=== PATIENT | male | born 1940 | race Caucasian/White ===

== ENCOUNTER 2021-06-16 14:48 | Inpatient (IN) | payer MEDICARE ==
[~2021-06-16] VITALS: Ht 180.3 cm; Wt 68.2 kg
[2021-06-16 15:17] LABS: BASO # 0.1 (0.0-0.2); BASO % 0.4 % (0.0-2.0); EOS % 0.3 % (0-4.0); GRAN # 9.7 (1.4-6.5); GRAN % 82.5 % (42.2-75.2); HEMATOCRIT 44.2 % (42.0-52.0); HEMOGLOBIN 15.2 g/dl (13.5-18.0); LYMPH # 1.3 (1.2-3.4); LYMPH % 10.8 % (20.0-51.0); MEAN CELL VOLUME 91 fl (80.0-100.0); MEAN CORPUSCULAR HEMOGLOBIN 31 pg (27.0-31.0); MEAN CORPUSCULAR HGB CONC 34 g/dl (33.0-37.0); MEAN PLATELET VOLUME 9.6 fl (7.4-10.4); MONO # 0.7 (0.1-0.6); MONO % 5.7 % (1.7-9.3); PLATELET COUNT 289 K/mm3 (130-400); RED BLOOD COUNT 4.84 M/mm3 (4.20-5.60); REDCELL DISTRIBUTION WIDTH-CV 12.3 % (11.5-14.5)
[2021-06-16 15:31] LABS: ALBUMIN 4.4 gm/dL (3.5-5.0); BILIRUBIN,TOTAL 0.4 mg/dL (0.0-1.0); CALCIUM 9.9 mg/dL (8.4-10.2); CREATININE, serum 1.34 (0.66-1.25); POTASSIUM 5.3 mmol/L (3.4-5.0); TOTAL PROTEIN 8.2 gm/dL (6.4-8.2)
[2021-06-16 15:49] LABS: TROPONIN-I 0.052 ng/mL (0.000-0.035)
[2021-06-16 16:27] LABS: COLLECTION METHOD CLEAN CATCH
[2021-06-16 16:34] LABS: PH 7 (5-8); SQUAMOUS EPITHELIAL 0-2 /hpf; URINE APPEARANCE Clear; URINE BACTERIA None Seen /hpf; URINE BILIRUBIN Negative (NEGATIVE); URINE BLOOD Negative (NEGATIVE); URINE COLOR Yellow; URINE GLUCOSE Negative (NEGATIVE); URINE KETONE Negative (NEGATIVE); URINE LEUKOCYTE ESTERASE Negative (NEGATIVE); URINE NITRATE Negative (NEGATIVE); URINE PROTEIN(semi-quant) 1+ (NEGATIVE); URINE RBC None Seen /hpf; URINE UROBILINOGEN Negative (NEGATIVE)
[2021-06-16 17:11] LABS: TRICYCLIC ANTIDEPRESS URINE NEGATIVE
[2021-06-16 18:21] VITALS: BP 157/74; PULSE 62; TEMP 98.2
--- NOTE | 2021-06-16 19:16 | NUR ---
Pt arrived to floor at 1830 via wc with ER staff, able to get to bed but cannot hear anything I am saying. Lesly to see pt at this time, will continue to monitor and give nightshift report.
--- NOTE | 2021-06-16 20:30 | NUR ---
Admitted to surgical floor from ER-- DX, weakness, altered mental status,,, Pt alert/very, very [place]-have to communicate with white board- VSS, is oriented to month/year and place-- states does not know how he ended up on the ground where he was found earlier today and brought to ER--- no neuro deficits noted- up to bathroom with assist- weak gait. Denies any pain. Tele put on patient per orders, Lesly MARADIAGA aware of troponins, IV of NS at 100cc/hr
[2021-06-16 21:40] VITALS: BP 152/59; PULSE 54; TEMP 97.3
[2021-06-16 23:21] VITALS: BP 147/52; PULSE 44
[2021-06-16 23:23] VITALS: BP 147/52; PULSE 44; TEMP 98.3
[2021-06-17 00:12] LABS: PROCALCITONIN <0.05 ng/mL (0.00-0.09)
[2021-06-17 03:23] VITALS: BP 137/71; PULSE 50; TEMP 97.9
--- NOTE | 2021-06-17 04:55 | NUR ---
Quiet night- VSS, denies any chest pain-- states his right arm/shoulder is sore from a previous fall-- Up to bathroom with assist, voiding good amounts of urine, continues with IV fluids of NS at 100cc/hr. Bed alarm on- forgets to call for nurse for assistance- reminded again. States he wants to go home.
[2021-06-17 07:27] LABS: BASO % 0.3 % (0.0-2.0); EOS # 0.1 (0.0-0.7); EOS % 1.4 % (0-4.0); GRAN # 7.3 (1.4-6.5); GRAN % 79.4 % (42.2-75.2); HEMATOCRIT 41.6 % (42.0-52.0); HEMOGLOBIN 13.8 g/dl (13.5-18.0); LYMPH # 1.2 (1.2-3.4); MEAN CELL VOLUME 95 fl (80.0-100.0); MEAN CORPUSCULAR HEMOGLOBIN 32 pg (27.0-31.0); MEAN CORPUSCULAR HGB CONC 33 g/dl (33.0-37.0); MONO # 0.5 (0.1-0.6); MONO % 5.7 % (1.7-9.3); PLATELET COUNT 251 K/mm3 (130-400); RED BLOOD COUNT 4.37 M/mm3 (4.20-5.60); REDCELL DISTRIBUTION WIDTH-CV 12.5 % (11.5-14.5)
[2021-06-17 07:33] LABS: CALCIUM 8.9 mg/dL (8.4-10.2); CREATININE, serum 1.2 (0.66-1.25); POTASSIUM 4.2 mmol/L (3.4-5.0)
[2021-06-17 07:50] LABS: TROPONIN-I 0.073 ng/mL (0.000-0.035)
--- NOTE | 2021-06-17 08:00 | NUR ---
PATIENT IS ALERT AND ORIENTED X2 TO TIME AND PERSON. PATIENT IS UNSURE OF WHERE WE ARE OR WHO PRESIDENT IS. PATIENT IS VERY HARD OF HEARING. WHITE BOARD HAS BEEN UTILIZED FOR COMMUNICATION. NEURO CONSULT TODAY. IV INFUSING INTO RIGHT AC. VITAL SIGNS STABLE. PATIENT STATES HE HAS RIGHT SHOULDER PAIN. NO OTHER NEEDS AT THIS TIME. HEAD TO TOE ASSESSMENT COMPLETE. CALL LIGHT WITHIN REACH.
[2021-06-17 08:03] LABS: TSH w REFLEX 1.75 uIU/mL (0.465-4.680)
[2021-06-17 08:14] VITALS: BP 159/56; PULSE 51; TEMP 98.5
--- NOTE | 2021-06-17 10:25 | NUR ---
The pt cannot hear very well and the pt seems private Sw met with the pt who stated his preference to return home once medically stable. The pt did not responde to me at first then he put his hands to his ears because he couldn't hear well. The Sw noticed that the pt did not have any data his home demographics. The sw asked the pt if he had a next of kin and he said he has no or kids but does have silblings. He has one sister and two brothers, Jose lucas and Brendon Lucas. The pt does not have a PCP and does not want one or a pharmacy. He stated he does not take medications. The pt did not answer me about DPOA-HC. The pt is independent on all ADLs and uses no DME he nodds. The sw left with the pt a assistance application. No other needs stated at this time. Sw to await further recommendations and follow up as needed. D/c: HOME
[2021-06-17 11:26] VITALS: BP 148/56; PULSE 52; TEMP 97.9
--- NOTE | 2021-06-17 13:44 | NUR ---
Initial visit attempt; Patient unable to hear Design Sales Consultant but let her know he thanked her for giving him a sign of the cross and letting him know she will pray for him.
[2021-06-17 16:16] VITALS: BP 173/75; PULSE 49; TEMP 98.4
[2021-06-17 17:48] LABS: FOLATE (FOLIC ACID) 6.8 ng/mL (2.0-20.0)
--- NOTE | 2021-06-17 18:37 | NUR ---
PATIENT CONFUSED THROUGHOUT DAY. REFUSED MRI. NOTIFIED DUDLEY ZUNIGA OF HYPERTENSION AND LOW HEART RATE AT 37 AND ENLARGED SCROTUM. PATIENT DENIES PAIN. NO FURTHER NEEDS AT THIS TIME. WILL REPORT TO DRAFTER PATENT
[2021-06-17 20:18] VITALS: BP 171/68; PULSE 48; TEMP 98.3
--- NOTE | 2021-06-17 20:30 | NUR ---
Initial shift assessment done- very [place] , using the white board to communicate if possible-- confused as to year, knows he is in the hospital-- states he just wants to go home, Tele on- SB 40,s-50,s ,, has dipped to 37-38/min but not sustained - Lesly ZUNIGA aware. Patient denies pain
[2021-06-18 00:12] VITALS: BP 189/84; PULSE 59; TEMP 97.7
[2021-06-18 04:47] VITALS: BP 186/74; PULSE 54; TEMP 98.2
--- NOTE | 2021-06-18 05:36 | NUR ---
Was up to bathroom numerous times during the shift, had some loose/flecks of stool. Remains oriented except for year and ?situation, wants to go home--will not use call light-impulsive and just gets up to bathroom-bed alarm on. Denies any pain. Did get apresoline prn x1 for increased B/P-
[2021-06-18 06:56] LABS: BASO % 0.5 % (0.0-2.0); EOS # 0.2 (0.0-0.7); EOS % 2.2 % (0-4.0); GRAN # 6.7 (1.4-6.5); GRAN % 75.4 % (42.2-75.2); HEMATOCRIT 44.2 % (42.0-52.0); HEMOGLOBIN 14.9 g/dl (13.5-18.0); LYMPH # 1.4 (1.2-3.4); LYMPH % 16.2 % (20.0-51.0); MEAN CELL VOLUME 93 fl (80.0-100.0); MEAN CORPUSCULAR HEMOGLOBIN 31 pg (27.0-31.0); MEAN CORPUSCULAR HGB CONC 34 g/dl (33.0-37.0); MEAN PLATELET VOLUME 10.6 fl (7.4-10.4); MONO # 0.5 (0.1-0.6); MONO % 5.2 % (1.7-9.3); PLATELET COUNT 256 K/mm3 (130-400); RED BLOOD COUNT 4.76 M/mm3 (4.20-5.60); REDCELL DISTRIBUTION WIDTH-CV 12.5 % (11.5-14.5)
[2021-06-18 07:13] VITALS: BP 187/77; PULSE 54; TEMP 98.2
[2021-06-18 07:21] LABS: CALCIUM 9.4 mg/dL (8.4-10.2); CREATININE, serum 0.95 (0.66-1.25)
--- NOTE | 2021-06-18 08:00 | NUR ---
PATIENT IS ALEART AND ORIENTED X2. PATIENT IS CONFUSED OF YEAR. PATIENT READS OFF OF WHITE BOARD FOR ANSWERS TO DAY AND PLACE. PATIENT IS VERY HARD OF HEARING. PATIENT HAS IV TO RIGHT FOREARM INT. PATIENT SET TO RECIEVE MRI, EEG, CARDIO, AND NEURO CONSULT TODAY. STAFFING ADMINISTRATOR ALSO CONSULTED. PATIENT LIVES ALONE AND HAS NO FAMILY TO CONTACT. PATIENT HAS BEEN HAVING HR IN THE 40S-70S. PATIENT TOLERATING GENERAL DIET. NO FURTHER NEEDS AT THIS TIME. HEAD TO TOE ASSESSMENT COMPLETE. CALL LIGHT WITHIN REACH.
[2021-06-18 11:38] VITALS: BP 159/79; PULSE 85; TEMP 98.3
--- NOTE | 2021-06-18 13:34 | NUR ---
Kobi faxed over referral for placement to [facility] on 06/18 @ 7130.
--- NOTE | 2021-06-18 15:00 | NUR ---
Patient aggitated & irritated. He is wanting to go home. Tried multiple time to reoriented & discussed with patient safety. He is not understanding. in to see patient and also discussed safety with patient. Patient up and ambulated entire third floor 5 times. He did started to get tired & was wheeled back to his room. He was searching for an exit out. Patient not able to be covinced to stay for safety reasons. A dose of hadol of given per orders.
[2021-06-18 15:04] VITALS: BP 108/41; PULSE 95; TEMP 98.1
--- NOTE | 2021-06-18 16:46 | NUR ---
recreation worker contacted [facility] police to help with finding next of kin. Police state there is no residence at [address] [place] [address] and that patient does not own any vehicles and that patient does not have any credit cards. Police could not locate any next of kin for patient when running in their databases. Worker met with Dr Dahl and began work on guardianship.
--- NOTE | 2021-06-18 18:06 | NUR ---
PATIENT CONFUSED THROUGHOUT DAY. STATES HE COULW LIKE TO GO HOME. GOT COMPLETELY DRESSED AND WALKED THE HALLS WITH NURSE. ABLE TO GET HIM TO STAY WITH DISTRACTION TECHNIQUES AND HALPERIDOL PER ORDERS. PATIENT IS NOW LYING DOWN. PATIENT TOLERATING DIET WELL THROUGHOUT THE DAY.
--- NOTE | 2021-06-18 19:14 | NUR ---
Patient resting soundly. High fall risk protocol followed. rounded and reports eeg normal. Bedside report to Ava MORALES
--- NOTE | 2021-06-18 19:30 | NUR ---
Report received, assumed care for security shift manager. Assessment complete. Alert but only oriented to self. States he wants to get out of here and go home. Easily calmed down at this time but seems very drowsy. INT to right forearm flushes without difficulty. Denies pain/nausea/shortness of breath. VS stable. Will not leave tele on-removes as soon as you try to place it and gets very agitated. Plan of care discussed but not interested. Call light in reach with bed alarm on. Will monitor.
[2021-06-18 20:01] VITALS: BP 143/78; PULSE 77; TEMP 98.4
--- NOTE | 2021-06-18 21:00 | NUR ---
Tele reapplied at this time. Was on for approx three minutes when patient removed it stating "I dont want this on me." Unable to redirect.
[2021-06-19] VITALS (7 sets, daily range): BP systolic 134–179; BP diastolic 61–86; PULSE 57–68; TEMP 98–98.8
--- NOTE | 2021-06-19 05:00 | NUR ---
Rested well this shift. Still alert and oriented to self only. Attempts made to reapply tele throughout night but would take it off immediately and toss it on the couch. Denied pain/nausea/shortness of breath. VS remained stable. Denies current needs. Call light in reach/bed alarm on. WIll monitor.
--- NOTE | 2021-06-19 08:30 | NUR ---
Patient sitting up in chair. Tolerated breakfast. enterprise services manager & [employer]. police dept. in to see patient attempting to locate next of kin & find his home. Patient has been very plesant. Seems to be hearing a little better today. Tele placed aure on paitent & he is agreeable to keep on. High fall risk protocol followed.
--- NOTE | 2021-06-19 09:45 | NUR ---
speech in to see patient. She agrees patient mentation is better today.
--- NOTE | 2021-06-19 11:36 | NUR ---
Patient continues to sit up to chair. Using the bathroom as needed. high fall risk followed.
--- NOTE | 2021-06-19 13:29 | NUR ---
Patient ambulting halls with therapy. steady gait. He remains plesant.
--- NOTE | 2021-06-19 18:30 | NUR ---
Patient appeared to have a short seizure maybe 30 seconds after being up to the bathroom. Allsion with hospitalist made aware. Called per her request. Orders obtained. Vitals stable after seizure & patient not aware it happened. Keppa given per orders. Patient remains on tele. He has been very plesant today. Done well with meals. player services representative assisting with plan of care. He had MRI today & was cooperate. [facility]
--- NOTE | 2021-06-19 19:22 | NUR ---
Awake, alert, confusion noted, oriented to self, [place] bilateral ears, tolerating general diet, telemetry in use, seizure precautions in use, denies pain at this time. Will continue to monitor.
--- NOTE | 2021-06-19 19:49 | NUR ---
Patient sleeping soundly now. Report to night nurse
[2021-06-20 00:08] VITALS: BP 133/78; PULSE 65; TEMP 98.3
[2021-06-20 02:54] VITALS: BP 130/70; PULSE 58; TEMP 98.5
--- NOTE | 2021-06-20 06:45 | NUR ---
awake resting in bed, bedside shift report recieved from CARMEN Larios
[2021-06-20 07:30] VITALS: BP 142/71; PULSE 60; TEMP 98.6
--- NOTE | 2021-06-20 07:30 | NUR ---
awake resting in bed, full assessment completed, see interventions for further info, is very hard of hearing and using the white board to communicate, will order his breakfast now
--- NOTE | 2021-06-20 07:51 | NUR ---
plant maintenance worker is actively working with [place] attorneys to secure guardianship/conservatorship for patient. Adult protective services report was filed on 06/19/2021 #[id number]. Worker, on that date, contacted Antwon with Adult protective services and discussed this case. Will await her contact and pursue help with locating property management that owns patient's room that he rents. Will plan for APS to enter patient's room, with landlord to help locate support systems.
--- NOTE | 2021-06-20 10:15 | NUR ---
assisted him up and into shower, he waited for this nurse to explain to him what to do and wash himself, then out of shower and into chair with chair alarm is on
[2021-06-20 11:05] VITALS: BP 122/51; PULSE 63; TEMP 98.5
--- NOTE | 2021-06-20 13:05 | NUR ---
sitting up in chair eating lunch, bedside shift report given to CARMEN Frances
--- NOTE | 2021-06-20 13:05 | NUR ---
Bedside shift report complete, RN Precious introduced this RN to the patient. Pt. is sitting up in chair eating lunch. Precious reported pt. is impulsive, this RN has the patient in line of sight. Safety maintained.
--- NOTE | 2021-06-20 13:33 | NUR ---
Chanel with APS called social media assistant and is working the case. Chanel will attempt to locate landlord and get into apartment with landlord and law enforcement to explore if there are family contacts. Chanel will come to the hospital on Wednesday morning to meet with patient.
[2021-06-20 17:09] VITALS: BP 142/60; PULSE 56; TEMP 98.1
[2021-06-20 19:57] VITALS: BP 115/62; PULSE 61; TEMP 97.6
--- NOTE | 2021-06-20 23:32 | NUR ---
PATIENT RECEIVED IN CHAIR, ALERT AND ORIENTED TO SELF, PLACE AND SURROUNDING. AMBULATED IN ROOM WITH SBA, CHAIR ALARM ON, PATIENT IS IMPULSIVE. GAIT IS STEADY. SEIZURE PRECAUTION PAD IN BED. PATIENT TOOK MED WHOLE WITH WATER. DENIES PAIN OR ANY DISCOMFORT. PATIENT NENANA. WILL CONTINUE TO MONITOR.
[2021-06-21 00:32] VITALS: BP 157/66; PULSE 67; TEMP 98.2
[2021-06-21 04:19] VITALS: BP 156/63; PULSE 54; TEMP 98.1
[2021-06-21 07:11] LABS: BASO % 0.6 % (0.0-2.0); EOS # 0.3 (0.0-0.7); EOS % 4.1 % (0-4.0); GRAN # 4.8 (1.4-6.5); HEMOGLOBIN 14.2 g/dl (13.5-18.0); LYMPH # 1.6 (1.2-3.4); LYMPH % 21.6 % (20.0-51.0); MEAN CELL VOLUME 96 fl (80.0-100.0); MEAN CORPUSCULAR HEMOGLOBIN 32 pg (27.0-31.0); MEAN CORPUSCULAR HGB CONC 33 g/dl (33.0-37.0); MEAN PLATELET VOLUME 9.9 fl (7.4-10.4); MONO # 0.5 (0.1-0.6); MONO % 7.3 % (1.7-9.3); PLATELET COUNT 288 K/mm3 (130-400); RED BLOOD COUNT 4.47 M/mm3 (4.20-5.60); REDCELL DISTRIBUTION WIDTH-CV 12.9 % (11.5-14.5)
[2021-06-21 07:26] LABS: CREATININE, serum 0.98 (0.66-1.25); POTASSIUM 4.3 mmol/L (3.4-5.0)
[2021-06-21 08:00] VITALS: BP 132/67; PULSE 57; TEMP 99.1
--- NOTE | 2021-06-21 08:45 | NUR ---
Patient sitting up in chair for breakfast. hospitalist rounded. minimal needs. high fall risk protocol followed as well as seizure precautions. Patient dean of hearing at times. white board used as needed for communication.
[2021-06-21 13:30] VITALS: BP 133/60; PULSE 60; TEMP 97.6
--- NOTE | 2021-06-21 16:15 | NUR ---
Patient resting in bed. up to the bathroom stand by assist. continue to follow high fall risk protocol.
[2021-06-21 16:39] VITALS: BP 149/59; PULSE 58; TEMP 97.9
--- NOTE | 2021-06-21 17:46 | NUR ---
dinner ordered. patient continues to deny pain. voiding adequately. stand by assist. high fall risk followed.
--- NOTE | 2021-06-21 18:59 | NUR ---
Patient up to the bathroom, voided. tolerated dinner. up to sink and brushed his teeth. no resting in bed. report to inez pham
[2021-06-21 20:09] VITALS: BP 133/52; PULSE 62; TEMP 98.1
[2021-06-22] VITALS (7 sets, daily range): BP systolic 129–182; BP diastolic 56–77; PULSE 51–63; TEMP 97.5–98.2
--- NOTE | 2021-06-22 07:00 | NUR ---
Report received form CARMEN Perez. Pt in be resting, sitting up on bench at side of bed, wearing own clothes, very pleasant. Will continue to monitor.
--- NOTE | 2021-06-22 07:19 | NUR ---
PT VERY CONFUSED BUT COOPERATIVE. NO c/o PAIN. FREQUENTLY GETTING UP TO LEAVE FACILITY. PULLED TELEMETRY OFF SEVERAL TIMES. HE WAS EASILY RE-DIRECTED BUT HAS TO BE WATCHED.
--- NOTE | 2021-06-22 09:00 | NUR ---
Assessment charted. Pt in recliner at side of bed, extremely [place], utilizing white board for communication. PT completely oriented, answers all questions easily, denies any pain, states he did hurt his R shoulder prior to hospitalization but denies pain at site. INT to RFA. Wearing Telemetry, eating very well, denies needs, pleasant in room. Will continue to monitor.
--- NOTE | 2021-06-22 12:05 | NUR ---
Pt states prior address was [address] [place] [address]
--- NOTE | 2021-06-22 19:14 | NUR ---
Pt has done well over shift, resting in bed, laundered clothes for him. Pt sets off alarms but does not attempt to leave room or come out into hallway, very pleasant and able to remain oriented for entire shift. REport given to nightshift nurse hwo will resume care.
[2021-06-23 04:13] VITALS: BP 137/83; PULSE 53; TEMP 98
--- NOTE | 2021-06-23 06:17 | NUR ---
PT WAS COOPERATIVE/COMPLIANT WITH CARE. VERY [place]. PT SLEPT IN CLOTHES THIS SEEMS TO MAKE HIM A LITTLE LESS ANXIOUS. NO SEIZURES OR SEIZURE LIKE ACTIVITY NOTED.
--- NOTE | 2021-06-23 07:00 | NUR ---
Report received from CARMEN Perez. PT in room, up walking around well independently, will conitnue to monitor.
[2021-06-23 08:01] VITALS: BP 127/65; PULSE 68; TEMP 98.8
--- NOTE | 2021-06-23 08:58 | NUR ---
Assessmetn charted. PT doing well, eating breakfast, denies pain, able to answer all orientation questions appropriately. Will continue to monitor.
[2021-06-23 11:50] VITALS: BP 127/73; PULSE 51; TEMP 97.9
--- NOTE | 2021-06-23 15:33 | NUR ---
[place] [employer] attorneys continue to work on securing guardianship for patient. tobacco farmworker will secure shelter care for patient, once guardianship/conservatorship.
--- NOTE | 2021-06-23 19:16 | NUR ---
Pt has done well over shift, resting in bed or recliner, up ad abe. Denies needs, bedside shift report given to nightshift nurse who will resume care.
[2021-06-23 19:52] VITALS: BP 153/73; PULSE 64; TEMP 98.2
--- NOTE | 2021-06-23 22:45 | NUR ---
Pt. sitting up in bed. Pt. is A&OX3, assessment complete. INT to rt. forearm patent. Pt. denies pain or other needs, call light within reach.
[2021-06-24 00:17] VITALS: BP 137/57; PULSE 53; TEMP 97.8
[2021-06-24 04:22] VITALS: BP 144/57; PULSE 52; TEMP 98
--- NOTE | 2021-06-24 05:27 | NUR ---
Pt. more confused this morning. Getting up and trying to go to the grocery store. Pt. reoriented but still seems confused.
--- NOTE | 2021-06-24 07:14 | NUR ---
Report received from Robb. Pt. resting in bed comfortably. White board used for communication because pt. is hard of hearing. Pt. is only oriented to himself. Pt. reports he thought he was in a mental institution, this RN reoriented pt. to let him know he is in the hospital in [facility], not a mental institution. Pt. reported it was 2011, pt. reoriented to let him know the date. This RN encouraged pt. to sit in the chair to wait for breakfast. Chair alarm on, call light in reach.
[2021-06-24 07:53] VITALS: BP 131/58; PULSE 60; TEMP 98.2
[2021-06-24 12:00] VITALS: BP 145/54; PULSE 51; TEMP 98.5
--- NOTE | 2021-06-24 12:33 | NUR ---
Pt. progressing with plan of care. Pt OOB in chair sitting up eating lunch. White board used for communication. Chair alarm on, call light in reach, pt. in line of sight in nurses station.
[2021-06-24 15:09] VITALS: BP 133/57; PULSE 51; TEMP 98
--- NOTE | 2021-06-24 16:55 | NUR ---
KAREN Buchanan, states she will make patient contact on 06/25/2021. Worker obtained legal documents for temporary guardianship and conservatoship. Worker spoke with Cierra Jacob [phone] (temporary conservator) and advised that patient is ready for placement. Worker gave a referral to [facility] of [facility] and their director, Carolina, will meet with patient on 06/25/2021 at 1:00. Carolina will contact patient's conservatorship and discuss payment for things that would be needed in their room (bed, etc).
--- NOTE | 2021-06-24 17:06 | NUR ---
Chanel with APS will attempt to secure landlord tomorrow at 8:00am at the brick paving checker office and then will come and visit with patient at the hospital. Chanel states the State can pay for a twin bed and bedding to be used if patient is accepted to [facility].
--- NOTE | 2021-06-24 19:28 | NUR ---
Report given to Diane. Bed alarm on. Pt. resting in bed and introduced to tobacco roller nurse
[2021-06-24 19:38] VITALS: BP 144/66; PULSE 61; TEMP 98.1
--- NOTE | 2021-06-24 20:49 | NUR ---
Assessment complete and charted. Patient refused PM arely. Says he would rather have seizures than take his medications. Patient wedged white board eraser under door to prevent staff from coming in. Educated patient to not do this for safety reasons. Agrees not to repeat behaviors. Call light in reach.
[2021-06-25] VITALS: BP 141/59; PULSE 53; TEMP 98.1
[2021-06-25 04:01] VITALS: BP 124/59; PULSE 55; TEMP 98
--- NOTE | 2021-06-25 06:43 | NUR ---
Patient had uneventful night. Resting in bed this AM.
--- NOTE | 2021-06-25 06:53 | NUR ---
Report given to CARMEN Fritz
[2021-06-25 08:35] VITALS: BP 154/66; PULSE 58; TEMP 97.4
--- NOTE | 2021-06-25 09:30 | NUR ---
Pt doing well, sitting up in the chair. He is tolerating a general diet with no complaints. Pt is steady on his feet and is independent in his room
--- NOTE | 2021-06-25 11:00 | NUR ---
Pt took shower, linens changed. Took pts clothing down to be washed per his consent. Pt may be transferring to [place], pt not thrilled, but seems willing to go
[2021-06-25] MEDS ORDERED: NORVASC 5MG5 MG/TAB PO (12:29)
[2021-06-25] MEDS ORDERED: KEPPRA750 MG PO (12:30)
[2021-06-25] MEDS ORDERED: TYLENOL 325MG325 MG PO (12:30)
[2021-06-25] MEDS ORDERED: ASPIRIN E.C. 8181 MG PO (12:34)
[2021-06-25 13:02] VITALS: BP 127/70; PULSE 61; TEMP 97.4
[2021-06-25 14:59] VITALS: BP 127/70; PULSE 61; TEMP 97.4
--- NOTE | 2021-06-25 15:42 | NUR ---
DISCONTINUED IV. PATIENT ESCORTED OUT VIA [facility]. REPORT CALLED.
--- NOTE | 2021-06-25 15:50 | NUR ---
building construction ironworker made a referral to [facility] and patient was accepted for skilled care and then longterm care versus assisted living. Worker spoke with conservator, Cierra and she is aware of acceptance and has made contact with facility. Cierra will gain access to patient's apartment and secure that he has clothing. KAREN Buchanan, met with patient and will pay for bed and dresser if patient eventually moves to assisted living apartment at [facility]. Worker notified guardian of above information. Worker met with patient this date and discussed need for higher level of care and transition to [facility].
--- NOTE | 2021-06-27 11:17 | NUR ---
Dorita, at [facility], contacted his SW. Dorita requested the patient's therapy notes. SW faxed the patient's therapy notes to [facility].
== END 2021-06-25 15:44 | DRG 101 ==
LOC: COL.ER 14:48 → SURG 17:22 → EDBEDREQ 18:03 → SURG 23:00
PROVIDERS: Emergency Medicine; Internal Medicine; Physician Assistant; Student in an Organized Health Care Education/Training Program; ADMIT Student in an Organized Health Care Education/Training Program
DX: G40.209 Localization-related (focal) (partial) symptomatic epilepsy and epileptic syndromes with complex partial seizures, not intractable, without status epilepticus (principal); M62.82 Rhabdomyolysis; N17.9 Acute kidney failure, unspecified; I67.4 Hypertensive encephalopathy; Z20.822 Contact with and (suspected) exposure to COVID-19; E86.0 Dehydration; E87.5 Hyperkalemia; I10 Essential (primary) hypertension; I16.0 Hypertensive urgency; F03.90 Unspecified dementia, unspecified severity, without behavioral disturbance, psychotic disturbance, mood disturbance, and anxiety; R53.81 Other malaise; M85.811 Other specified disorders of bone density and structure, right shoulder; R77.8 Other specified abnormalities of plasma proteins; R00.1 Bradycardia, unspecified
CPT/HCPCS: 99231-AI; 99232-AI; 99233-AI; 99239; A9585; J0360; J1630; J1644; J1953; J7030